=== PATIENT | female | born 1935 | race Caucasian/White ===

== ENCOUNTER 2020-08-31 11:48 | Emergency (ER) | payer MEDICARE, MEDICAID ==
[~2020-08-31] VITALS: Ht 162.6 cm; Wt 77.3 kg
[~2020-08-31 11:48] MED LIST: ALEVE 220MG220 MG PO; CARDIZEM 30MG T30 MG; CARDIZEM CD 18180 MG PO; CARTIA XT180 MG PO; LORTAB 5/500 501 TAB PO; SYNTHROID0.05 MG PO; SYNTHROID0.05 MG/TA PO; [UNRECOGNIZED DRUG - OTHER]
[2020-08-31 12:03] LABS: BASO % 0.3 % (0.0-2.0); EOS # 0.1 (0.0-0.7); EOS % 1.9 % (0-4.0); GRAN # 5.3 (1.4-6.5); GRAN % 76.3 % (42.2-75.2); HEMOGLOBIN 13.8 g/dl (12.5-16.0); LYMPH # 0.8 (1.2-3.4); LYMPH % 11.8 % (20.0-51.0); MEAN CELL VOLUME 93 fl (80.0-100.0); MEAN CORPUSCULAR HEMOGLOBIN 31 pg (27.0-31.0); MEAN CORPUSCULAR HGB CONC 33 g/dl (33.0-37.0); MEAN PLATELET VOLUME 10.4 fl (7.4-10.4); MONO # 0.7 (0.1-0.6); MONO % 9.4 % (1.7-9.3); PLATELET COUNT 261 K/mm3 (130-400); REDCELL DISTRIBUTION WIDTH-CV 13.9 % (11.5-14.5)
[2020-08-31 12:32] LABS: ALANINE AMINOTRANSFERASE 12 U/L (4-34); ALBUMIN 4.2 gm/dL (3.5-5.0); ALKALINE PHOSPHATASE 67 U/L (50-136); ANION GAP 9 mmol/L (7-16); AST,SGOT 19 U/L (15-37); BILIRUBIN,TOTAL 0.5 mg/dL (0.0-1.0); BLOOD UREA NITROGEN 11 mg/dL (7-17); CARBON DIOXIDE 28 mmol/L (22-30); CHLORIDE 103 mmol/L (98-107); GLUCOSE 110 mg/dL (74-106); POTASSIUM 3.9 mmol/L (3.4-5.0); SODIUM 140 mmol/L (137-145); TOTAL PROTEIN 7.1 gm/dL (6.4-8.2)
[2020-08-31 12:45] LABS: TROPONIN-I < 0.012 ng/mL (0.000-0.035)
[2020-08-31 12:50] LABS: COLLECTION METHOD CLEAN CATCH
[2020-08-31 12:58] LABS: PH 6 (5-8); SQUAMOUS EPITHELIAL 0-2 /hpf; URINE APPEARANCE Clear; URINE BACTERIA Rare /hpf; URINE BILIRUBIN Negative (NEGATIVE); URINE BLOOD Negative (NEGATIVE); URINE COLOR Straw; URINE GLUCOSE Negative (NEGATIVE); URINE KETONE Negative (NEGATIVE); URINE LEUKOCYTE ESTERASE Trace (NEGATIVE); URINE NITRATE Negative (NEGATIVE); URINE PROTEIN(semi-quant) Negative (NEGATIVE); URINE RBC 0-2 /hpf; URINE UROBILINOGEN Negative (NEGATIVE)
[2020-08-31 16:08] VITALS: BP 173/77; PULSE 78; TEMP 98.1
== END 2020-08-31 16:08 | disposition home or self-care (01) ==
LOC: COL.ER 11:48
PROVIDERS: Emergency Medicine
DX: R55 Syncope and collapse (principal); Z88.2 Allergy status to sulfonamides
CPT/HCPCS: J7030

== ENCOUNTER 2021-10-10 13:00 | Observation (INO) | payer MEDICARE, MEDICAID ==
[~2021-10-10] VITALS: Ht 162.6 cm; Wt 65.9 kg
[2021-10-10] MEDS ORDERED: TOPROL XL 25MG25 MG PO (14:13)
[2021-10-10 14:22] LABS: BASO % 0.2 % (0.0-2.0); GRAN # 10.7 K/mm3 (1.4-6.5); GRAN % 88.3 % (42.2-75.2); HEMATOCRIT 41.4 % (37.0-47.0); LYMPH # 0.4 K/mm3 (1.2-3.4); LYMPH % 2.9 % (20.0-51.0); MEAN CELL VOLUME 91 fl (80.0-100.0); MEAN CORPUSCULAR HEMOGLOBIN 31 pg (27-31); MEAN CORPUSCULAR HGB CONC 34 g/dl (33.0-37.0); MEAN PLATELET VOLUME 10.3 fl (7.4-10.4); MONO % 8.4 % (1.7-9.3); PLATELET COUNT 290 K/mm3 (130-400); RED BLOOD COUNT 4.53 M/mm3 (4.10-5.30); REDCELL DISTRIBUTION WIDTH-CV 13.7 % (11.5-14.5)
[2021-10-10 14:34] LABS: ALBUMIN 4.4 gm/dL (3.4-4.8); BILIRUBIN,TOTAL 0.9 mg/dL (0.2-1.2); CREATININE, serum 0.65 mg/dL (0.57-1.11); POTASSIUM 3.5 mmol/L (3.5-4.5)
[2021-10-10 14:41] LABS: TROPONIN-I 0.048 ng/mL (0.00-0.033)
[2021-10-10 19:17] LABS: PARTIAL THROMBOPLASTIN TIME 30.4 SECONDS (26.0-37.0)
[2021-10-10 20:34] VITALS: BP 99/57; PULSE 89; TEMP 98.5
--- NOTE | 2021-10-10 21:45 | NUR ---
PATIENT IS RESTING ON THE CHAIR.PATIENT IS ON A HEPAIN DRIP DRIPPING WELL.LAB CALLED FOR A CRITICAL LAB TROPS 0.77 TRENDING DOWN NOW.PATIENT DENIES PAIN.PATIENT IS ON TELEMETRY.PATIENT IS A STANDBY ASSIST.NO OTHER NEEDS AT THIS TIME.
[2021-10-10 23:54] VITALS: BP 102/47; PULSE 91; TEMP 97.5
[2021-10-11 04:36] VITALS: BP 118/48; PULSE 92; TEMP 97.6
--- NOTE | 2021-10-11 06:07 | NUR ---
PATIENT HAD A CALM NIGHT.PATIENT IS ON HEPARIN AT 8MLS/HR IN GOOD PROGRESS.SAFETY NEASURES IN PLACE.NO OTHER NEEDS AT THIS TIME.
[2021-10-11 07:14] LABS: BASO % 0.3 % (0.0-2.0); EOS # 0.1 K/mm3 (0.0-0.7); EOS % 0.7 % (0.0-4.0); GRAN # 5.4 K/mm3 (1.4-6.5); GRAN % 74.6 % (42.2-75.2); HEMATOCRIT 39.2 % (37.0-47.0); HEMOGLOBIN 13.1 g/dl (12.5-16.0); LYMPH # 0.9 K/mm3 (1.2-3.4); LYMPH % 13.1 % (20.0-51.0); MEAN CELL VOLUME 92 fl (80.0-100.0); MEAN CORPUSCULAR HEMOGLOBIN 31 pg (27-31); MEAN CORPUSCULAR HGB CONC 33 g/dl (33.0-37.0); MEAN PLATELET VOLUME 10.4 fl (7.4-10.4); MONO # 0.8 K/mm3 (0.1-0.6); PLATELET COUNT 250 K/mm3 (130-400); RED BLOOD COUNT 4.28 M/mm3 (4.10-5.30)
[2021-10-11 07:26] LABS: ALBUMIN 3.6 gm/dL (3.4-4.8); CALCIUM 8.8 mg/dL (8.4-10.2); CREATININE, serum 0.56 mg/dL (0.57-1.11); MAGNESIUM 1.9 mg/dL (1.6-2.6); PHOSPHOROUS 3.4 mg/dL (2.3-4.7); POTASSIUM 3.1 mmol/L (3.5-4.5)
[2021-10-11 07:57] VITALS: BP 117/57; PULSE 85; TEMP 98.4
--- NOTE | 2021-10-11 08:11 | NUR ---
Hepxa 0.23, increase by 150units/hr, TRA 9ml (900ml/hr), next check at 1400
--- NOTE | 2021-10-11 08:42 | NUR ---
Assessment completed, alert/oriented, vital signs stable, she denies any chest pain or discomfort, heart SR with PAC's/ rate 70-80's, troponin 6hr check is trending down/ I have spoke with Cardiology and discussed plan of care, heparin gtt per protocol, denies any resp.difficulty, lungs CTA, I have kept her NPO for possible Cards testing/procedure, discussed POC with patient and she verbalizes understanding, will continue to mmonitor, call light in reach
--- NOTE | 2021-10-11 10:56 | NUR ---
Patient is going to blood bank laboratory professional for a Loop recorder placement, consent is signed, hep gtt continues to infuse/ blood bank laboratory professional nurse aware
--- NOTE | 2021-10-11 12:08 | NUR ---
First visit from the quality systems specialist. No needs right now.
[2021-10-11 12:13] VITALS: BP 110/54; PULSE 83; TEMP 98.3
--- NOTE | 2021-10-11 14:26 | NUR ---
cabin worker met with patient to discuss discharge plan. Patient currently lives at home alone in an apartment. Patients son Arron ([phone]) present at bedside. Patient states that she is independent with her ADL's. States that she no longer drives and that Arron drives her to appointments and does her grocery shopping. Patient states that she utilizes a walker to assist with ambulation and that she has grab bars in her shower. Patient has no home oxygen needs. PCP is Dr. Robledo and she utilizes [facility] for perscriptions with no cost difficulty. Patient reports that she does have a DPOA-HC established and that her 3 children are listed as the agents. Patient is planning on returning home once medically ready. Discharge plan: Home
[2021-10-11 16:00] VITALS: BP 88/49; PULSE 95; TEMP 100.3
--- NOTE | 2021-10-11 20:20 | NUR ---
Patient is in the chair, alert and oriented x 4, VSS. Some anxiety about the new device in her body. Telemetry in place, NSR. Assessment completed, fall risk prec started (yellow gown, socks and band in wrist). No other needs at this time. Call light within reach.
[2021-10-11 20:47] VITALS: BP 116/49; PULSE 82; TEMP 98.6
[2021-10-11 23:57] VITALS: BP 127/48; PULSE 88; TEMP 97.7
[2021-10-12] VITALS (8 sets, daily range): BP systolic 112–126; BP diastolic 53–69; PULSE 65–96; TEMP 97.6–98.4
--- NOTE | 2021-10-12 05:37 | NUR ---
Patient has had a calm night. Has been NPO from midnight. Report will be given to day RN.
[2021-10-12 06:11] LABS: BASO % 0.5 % (0.0-2.0); EOS # 0.1 K/mm3 (0.0-0.7); EOS % 1.4 % (0.0-4.0); GRAN # 3.9 K/mm3 (1.4-6.5); GRAN % 68.6 % (42.2-75.2); HEMOGLOBIN 12.2 g/dl (12.5-16.0); LYMPH # 0.9 K/mm3 (1.2-3.4); LYMPH % 16.4 % (20.0-51.0); MEAN CELL VOLUME 92 fl (80.0-100.0); MEAN CORPUSCULAR HEMOGLOBIN 31 pg (27-31); MEAN CORPUSCULAR HGB CONC 33 g/dl (33.0-37.0); MEAN PLATELET VOLUME 10.4 fl (7.4-10.4); MONO # 0.7 K/mm3 (0.1-0.6); MONO % 12.9 % (1.7-9.3); PLATELET COUNT 228 K/mm3 (130-400); RED BLOOD COUNT 3.96 M/mm3 (4.10-5.30); REDCELL DISTRIBUTION WIDTH-CV 13.9 % (11.5-14.5)
[2021-10-12 06:16] LABS: HEMATOCRIT 36.6 % (37.0-47.0)
[2021-10-12 06:34] LABS: ALBUMIN 3.4 gm/dL (3.4-4.8); CALCIUM 8.5 mg/dL (8.4-10.2); CREATININE, serum 0.55 mg/dL (0.57-1.11); MAGNESIUM 1.9 mg/dL (1.6-2.6); PHOSPHOROUS 3.2 mg/dL (2.3-4.7); POTASSIUM 3.6 mmol/L (3.5-4.5)
--- NOTE | 2021-10-12 09:46 | NUR ---
Initial visit; Patient thanked Advocacy Director for looking in on her, providing encouragement and spiritual care, especially prayer and "comforting hugs."
--- NOTE | 2021-10-12 10:25 | NUR ---
PATIENT RETURN FROM [facility] PROCEDURE. COMPLAINING OF HEADACHE, RINGING IN BILATERAL EARS AND LEFT SIDED CHEST PAIN. RT CALLED FOR STAT EKG. VITALS 124/56, HR 75, O2 93% ON RA, RESP 16, TEMP 98.9.
[2021-10-12] MEDS ORDERED: CEPHALEXIN500 M1 PO (12:44)
--- NOTE | 2021-10-12 15:01 | NUR ---
Plastic Welder met with patient to review discharge plan as she may discharge today. SW discussed home health services and the benefits of HH with patient who advised she did not feel she needed these services at this time. SW attempted to contact patient's son, Arron and left a message. JAZZY also collaborated with Bernadine, Nurse-Home Appraiser at patient's primary care office to provide the above update and request PCP follow up on any need for home health following discharge. Discharge Plan: Home, declined HH
== END 2021-10-12 13:25 | disposition home or self-care (01) ==
LOC: COL.ER 13:00 → MEDICAL 15:31
PROVIDERS: Nurse Practitioner Family; ADMIT Internal Medicine
DX: R55 Syncope and collapse (principal); I48.91 Unspecified atrial fibrillation; I21.4 Non-ST elevation (NSTEMI) myocardial infarction; E87.6 Hypokalemia; I25.2 Old myocardial infarction; I08.0 Rheumatic disorders of both mitral and aortic valves; Z20.822 Contact with and (suspected) exposure to COVID-19; Z79.899 Other long term (current) drug therapy; Z80.9 Family history of malignant neoplasm, unspecified
CPT/HCPCS: 99223-AI; 99233-AI; 99239; A9500; C1764; G0378; J1644; J2785

== ENCOUNTER 2023-11-27 03:04 | Inpatient (IN) | payer MEDICARE, MEDICAID ==
[~2023-11-27] VITALS: Ht 165.1 cm; Wt 66.9 kg
[~2023-11-27 03:04] MED LIST changes: +CEPHALEXIN500 M1 PO; +TOPROL XL 25MG25 MG PO
[2023-11-28] VITALS (9 sets, daily range): BP systolic 137–155; BP diastolic 58–76; PULSE 74–99; TEMP 98.1–100
--- NOTE | 2023-11-28 03:25 | NUR ---
An Electronic Health Record (EHR) downtime event occurred during this patient s care. For legal medical record information generated during the downtime period, please reference the patient s legal record information generated during the downtime period, please reference the patient s legal medical record. Paper or scanned documentation has been incorporated into the legal medical record which is maintained in accordance with Health Information Management (HIM) and record retention policies
[2023-11-28] MEDS ORDERED: Ondansetron 4 MG/2 ML VIAL IV PRN (05:15)
[2023-11-28] MEDS ORDERED: Ketorolac 15 MG/ML VIAL IV PRN (05:15)
[2023-11-28] MEDS ORDERED: Acetaminophen 325 MG TAB PO PRN (05:15)
[2023-11-28] MEDS ORDERED: LR 1,000 ML IV SCH (05:15)
[2023-11-28] MEDS ORDERED: Morphine 4 MG/ML VIAL IV PRN (05:15)
[2023-11-28] MEDS ORDERED: Pantoprazole 40 MG in NS 10 ML IV SCH (09:00)
[2023-11-28] MEDS ORDERED: Heparin 5,000 UNITS/ML 1 ML VIAL SQ SCH (09:00)
--- NOTE | 2023-11-28 09:12 | NUR ---
Pt doing okay this morning, reports she if feeling much better than an episode around 1:00am. Pt states she does not need anything for pain at this time. Radiology called regarding KUB. EKG ordered and has been done. Educated pt on diet, did assist with brushing her teeth and gave some mouth swabs. Pt oriented, but is forgetful about ringing for help. Bed alarm on. O2 placed on at 0730 due to sats being 88% on room air. Pt has been up with PT and assisted to the bathroom, she did void without difficulty. No other needs at this time, call light within reach
--- NOTE | 2023-11-28 10:57 | NUR ---
Dr Jules notified of 100.0 temp.
--- NOTE | 2023-11-28 11:46 | NUR ---
Jig Worker and student, Adela met with patient to discuss discharge planning. Patient lives in [place] at the [facility] and stated she has lived in the same apartment for [address] Robledo for primary care, however is not happy with her care. When SW inquired about switching providers, patient stated she mainly sees other specialists. Patient gets her medications at [facility] and stated her son, Arron (ph#[phone]) picks them up for her. Patient stated he also comes over weekly to assist her with groceries. Patient stated she recently started getting meals on wheels and her son, Arron also brings her [employer]. Patient does not do any driving and relies on Arron for transportation. Patient has a rollator that she uses for ambulation and stated she likes to take her trash out daily and walk around the parking lot for exercise and to see what the weather is like. Patient reported she has a walk in shower and has multiple grab bars in her bathroom. Patient reported she is mostly independent with ADLS and does not currenlty have any Home Health, besides the help she gets from her son. Patient advised she has DPOA-HC completed and it designates her three children: Arron, Laurel and Jarred. Patient plans to return home at time of discharge. Discharge Plan: Home, pending further recommendations
--- NOTE | 2023-11-28 11:50 | NUR ---
Pt did okay with clear liquid diet, she did just have some coffee and jello, states she is not hungry. Pt continues to forget to ring to use the restroom. She also has to be directed on which way to move to get to the restroom. Bed alarm remains on, call light within reach
--- NOTE | 2023-11-28 15:20 | NUR ---
Pt was moving in bed and states that she got her IV tubing caught and her IV "accidently" fell out. New IV started in right forearm. PT has no complaints at this time and is resting in bed.
--- NOTE | 2023-11-28 21:44 | NUR ---
PT IS IN BED, ORIENTED TO SELF BUT UNSURE WHY SHE IS STILL HERE. REPORTS SHE LIVES IN INDEPENDENT LIVING AND REPORTS "I DO WELL ON MY OWN". ABD TENDER TO TOUCH, BOWEL SOUNDS MINIMAL WITH OBVIOUS DISTENTION NOTED. TORADOL 15MG IVP GIVEN. IV SITE TO RFA, NO REDNESS OR SWELLING NOTED. IS IMPULSIVE, BED ALARM ON. EMPTIED APPROX 200CC FROM EMESIS BAG, DENIES NAUSEA AT THIS TIME. NO BM SO FAR THIS SHIFT.
[2023-11-29] VITALS (18 sets, daily range): BP systolic 107–158; BP diastolic 58–79; PULSE 74–114; TEMP 98.3–99.6
--- NOTE | 2023-11-29 05:32 | NUR ---
PT HAS RESTED WELL. NO STOOLS THIS SHIFT. VOIDING WITHOUT PROBLEM. IVF CONTINUE. PT REMAINS ON CLEAR LIQUIDS.
--- NOTE | 2023-11-29 07:45 | NUR ---
pt curled up on the side of the bed experiencing nausea and vomiting. reports pain a 3/10 in her RLQ. zofran given per emar. vss. pt on 1L nasal cannula. fluids infusing into right forearm IV. abdomen is distended, bowel sounds hypoactive. pt denies needs at this time. call light in reach.
--- NOTE | 2023-11-29 12:45 | NUR ---
pt off floor for procedure.
[2023-11-29] MEDS ORDERED: Rocuronium 50 MG/5 ML Multi-Dose VIAL ONE (12:48)
[2023-11-29] MEDS ORDERED: Lidocaine PF 2% (20 MG/ML) 5 ML VIAL ONE (12:48)
[2023-11-29] MEDS ORDERED: Ondansetron 4 MG/2 ML VIAL ONE (12:48)
[2023-11-29] MEDS ORDERED: fentaNYL 50 MCG/ML 2 ML VIAL ONE (12:48)
[2023-11-29] MEDS ORDERED: LR 1,000 ML IV ONE (14:31)
[2023-11-29] MEDS ORDERED: Naloxone 0.4 MG/ML VIAL IV PRN (14:45)
[2023-11-29] MEDS ORDERED: Ondansetron 4 MG/2 ML VIAL IV PRN ×2 (14:45→15:00)
[2023-11-29] MEDS ORDERED: HYDROmorphone 0.5 MG/0.5 ML SYRINGE IV PRN (14:45)
[2023-11-29] MEDS ORDERED: Morphine 2 MG/1 ML VIAL [PACU/SDC ONLY] IV PRN (15:00)
[2023-11-29] MEDS ORDERED: HYDROmorphone 1 MG/1 ML SYRINGE [PACU/SDC ONLY] IV PRN (15:00)
[2023-11-29] MEDS ORDERED: fentaNYL 50 MCG/ML 1 ML SYRINGE/VIAL [PACU/SDC ONLY] IV PRN (15:00)
--- NOTE | 2023-11-29 19:00 | NUR ---
PT IN BED, TAKING ICE CHIPS SPARINGLY. HAS RT NARE NGT TO LIS, DRAINAGE BROWN IN CANNISTER. WEARING OXYMASK @4L, SAO2=93%. PT MORE ORIENTED TONIGHT, AWARE SHE HAD SURGERY AND REPORTS FEELING BETTER. HAS MIDLINE DRSG WITH SHADOWING. ONE ROBOTIC SITE WITH DRY GAUZE. HERNANDEZ TO BSD WITH YELLOW URINE. IVF TO RFA INFUSING WITHOUT PROBLEM.
--- NOTE | 2023-11-29 21:18 | NUR ---
MEDICATED WITH TORADOL 15MG IVP FOR MILD ABD PAIN. REINFORCED ABD DRSG WITH GAUZE FOR SHADOWING. HYPOACTIVE BS. COMPLIANT WITH NGT. MARY PATENT. BED ALARM ON. SCDS ON.
--- NOTE | 2023-11-29 23:30 | NUR ---
ASSISTED PT TO LT SIDE FOR COMFORT. DENIES PAIN AT THIS TIME.
[2023-11-30] VITALS (12 sets, daily range): BP systolic 107–133; BP diastolic 64–76; PULSE 77–102; TEMP 97.5–98.8
--- NOTE | 2023-11-30 01:46 | NUR ---
PT RESTLESS, HAVING ABD PAIN. HERNANDEZ DRAINING. NGT WITH LIGHT GREEN DRAINAGE IN TUBING. MORPHINE 4MG IVP GIVEN.
--- NOTE | 2023-11-30 05:27 | NUR ---
EMPTIED 400CC GREEN DRAINAGE FROM CANNISTER FOR THIS SHIFT. PT REMAINS ON OXYMASK AT 4L. NGT PATENT. IV SITE TO RFA WITHOUT REDNESS OR SWELLING. BED ALARM ON.
--- NOTE | 2023-11-30 07:58 | NUR ---
FOUND PT ON RA 64%. PACED O2 BACK ON AT 2 LPM OXYMK 90% RN NOTIFIED
--- NOTE | 2023-11-30 08:40 | NUR ---
pt a&ox4 resting in bed, dr aquino in assessing patient. pt reports tenderness with touch to the abdomen otherwise she denies pain. bowel sounds are hyperactive, denies passing gas. midline incision is cdi. vss. pt on 4L oxymask. scds to ble. tolerating ice chips with no nausea. NG tube to LIS w green gastric output. jeter to dd with clear yellow urine output. pts main concern is the discomfort from the catheter. fluids infusing into right forearm. fall precautions in place. call light in reach. no needs at this time.
[2023-11-30] MEDS ORDERED: Pantoprazole 40 MG in NS 10 ML IV SCH (09:00)
--- NOTE | 2023-11-30 14:52 | NUR ---
nursery worker met with pt to provide Medicare.gov list of SNF options after reviewing pt/ot reccomendations for HH vs SNF. Pt reports she had a major surgery done and is confused, and is not planning too far into the future. She is hopeful to return home upon discharge. SW provided Medicare.[employer] list of SNF in her room. She reports she will re-assess in a few days and would not like to discuss it any further. SW advised therapy team will continue to increase her strength and SW's will check on her periodically. Pt had no further questions. Discharge Plan: HH vs SNF
--- NOTE | 2023-11-30 20:30 | NUR ---
PT A&O X4 WITH SOME INTERMITTENT CONFUSION, LAYING IN BED. VSS ON 4L/NC. PT HAS NG TO LIS WITH YELLOW OUTPUT. PT DENYING N/V OR PASSING GAS. STATES ABD FEELS TENDER, DENIES THE NEED FOR PAIN MEDS. LR @ 75MLS/HR INFUSING TO RT FOREARM. PT AMBULATED TO RESTROOM WITH X1 ASSIST. BACK IN BED W/ FALL PRECAUTIONS IN PLACE & CALL LIGHT IN REACH.
[2023-12-01] VITALS (12 sets, daily range): BP systolic 122–148; BP diastolic 63–79; PULSE 75–98; TEMP 97.8–98.5
--- NOTE | 2023-12-01 05:42 | NUR ---
PT RESTING IN BED W/ UNLABORED RESP. PT HAS HAD 300ML OUT OF NGT THIS SHIFT. NO C/O PAIN OR N/V. BLE SCD ON. CALL LIGHT IN REACH & FALL PRECAUTIONS IN PLACE.
[2023-12-01 06:47] LABS: BASO % 0.1 % (0.0-2.0); EOS % 0.3 % (0.0-4.0); GRAN # 5.5 K/mm3 (1.4-6.5); GRAN % 77.4 % (42.2-75.2); HEMOGLOBIN 10.3 g/dl (12.5-16.0); LYMPH # 0.6 K/mm3 (1.2-3.4); LYMPH % 8.5 % (20.0-51.0); MEAN CELL VOLUME 93 fl (80.0-100.0); MEAN CORPUSCULAR HEMOGLOBIN 31 pg (27-31); MEAN CORPUSCULAR HGB CONC 33 g/dl (33.0-37.0); MEAN PLATELET VOLUME 10.5 fl (7.4-10.4); MONO % 13.4 % (1.7-9.3); PLATELET COUNT 261 K/mm3 (130-400); RED BLOOD COUNT 3.34 M/mm3 (4.10-5.30); REDCELL DISTRIBUTION WIDTH-CV 14.2 % (11.5-14.5)
--- NOTE | 2023-12-01 12:07 | NUR ---
PATIENT ALERT AND ORIENTED X4 BUT FORGETFUL. NG TO LIS, APPEARS TO BE DISPLACED, AT 26CM INTO RIGHT NARE. IV TO RIGHT FA WITH LR RUNNING AT 75ML/HOUR. PATIENT ON 3L NC. PATIENT DENIES PAIN. AM MEDS ADMINISTERED. NO FURTHER NEEDS. CALL LIGHT IN REACH. BED ALARM ON.
--- NOTE | 2023-12-01 12:11 | NUR ---
NOTIFIED DR. CH OF POSSIBLE NG TUBE DISPLACEMENT. XRAY ORDERED, PHONE ORDER TO ADVANCE BY 2CM. ATTEMPTED TO ADVANCE, PATIENT WOULD NOT TOLERATE ADVANCEMENT WITH A FEW SIPS OF WATER. NG PULLED OUT. DR MALDONADO NOTIFIED, ORDER TO KEEP NPO, LEAVE NG TUBE OUT AND GIVE A FEW SIPS AND CHIPS TODAY.
--- NOTE | 2023-12-01 13:37 | NUR ---
Purchasing Manager met with patient to discuss a referral to [facility] as she was not very open to the idea of SNF yesterday and really wants to return home. SW explained that [facility] is another option along with the SNF options provided yesterday. Patient still is adamant that she prefers to return home but does acknowledge that she is weaker than normal. Patient is agreeable to speak with [facility] about their program so SW gave referral to Lisbeth, [facility] Director. SW contacted patient's son, Arron to provide update and he was very interested in patient going to IPR if accepted. Discharge Plan: IPR Screen
[2023-12-02] VITALS (12 sets, daily range): BP systolic 132–159; BP diastolic 57–78; PULSE 74–89; TEMP 97.4–98.5
[2023-12-02 06:45] LABS: BASO % 0.2 % (0.0-2.0); EOS # 0.1 K/mm3 (0.0-0.7); GRAN # 4.5 K/mm3 (1.4-6.5); GRAN % 76.5 % (42.2-75.2); LYMPH # 0.6 K/mm3 (1.2-3.4); LYMPH % 9.9 % (20.0-51.0); MEAN CELL VOLUME 94 fl (80.0-100.0); MEAN CORPUSCULAR HGB CONC 33 g/dl (33.0-37.0); MEAN PLATELET VOLUME 10.2 fl (7.4-10.4); MONO # 0.7 K/mm3 (0.1-0.6); MONO % 11.9 % (1.7-9.3); PLATELET COUNT 257 K/mm3 (130-400); RED BLOOD COUNT 3.02 M/mm3 (4.10-5.30); REDCELL DISTRIBUTION WIDTH-CV 14.2 % (11.5-14.5)
[2023-12-02 06:47] LABS: HEMATOCRIT 28.4 % (37.0-47.0); HEMOGLOBIN 9.4 g/dl (12.5-16.0); MEAN CORPUSCULAR HEMOGLOBIN 31 pg (27-31)
[2023-12-02 07:02] LABS: CALCIUM 8.8 mg/dL (8.4-10.2); CREATININE, serum 0.58 mg/dL (0.57-1.11); POTASSIUM 3.3 mEq/L (3.5-4.5)
--- NOTE | 2023-12-02 09:10 | NUR ---
Patient resting in bed this am. She ambulated the halls with theray this am, reports being tired after. rounded this am and plan of care reviewed. Patient to slowly progress to clear liquids. Abdomen rounded, hypoactive bowels, but does reports passing flatus and stool. Confirmed with MARKET RESEARCH SPECIALIST and she reports stool in patient breif with incontinence. Patient denies needing medications for pain. IVf as ordered. Will monitor. high fall risk protocol followed.
--- NOTE | 2023-12-02 11:47 | NUR ---
Data: Patient accepted Pre Press Operator visit offered during Pre Press Operator rounds. Patient received her liquid diet meal at approximately the same time. Patient had been trying to locate a "temple channel" on her TV. She had located the [employer] channel, but it was stuck on one slide and seemed to be off air. Assessment: Disappointed about the [employer] channel; however, very positive reaction to having a cup of coffee and a visit with the Pre Press Operator. Patient was on/off confused during discussion; recognizes her confusion. Patient is reflecting about the possible reasons God must have for saving her from dying. Patient is grateful for her care from all of the hospital staff. Plan of Care: Pre Press Operator offered supportive listening; prayer; a rosary; assistance with straws for liquid diet; and attempted to find a working channel for Patient, without success. Chaplains will remain available as needed/requested while Patient is admitted to this hospital.
--- NOTE | 2023-12-02 12:03 | NUR ---
Patient resting in bed, so thankful and happy to have coffee today. Po intake encouraged slowly. DESK ASSISTANT assisted with shower for patient. Patient was happy. IVF as ordered. Will monitor.
[2023-12-02] MEDS ORDERED: *Potassium Replacement Protocol MC SCH (14:00)
[2023-12-02] MEDS ORDERED: Potassium Bicarbonate/Citrate 20 MEQ Effervescent TAB PO SCH (14:00)
--- NOTE | 2023-12-02 14:16 | NUR ---
Patient resting in bed. Her son at bedside. Patient in positive spirits. Continues to tolerated clears. Patient had another small Bm up to bathroom. Will monitor.
--- NOTE | 2023-12-02 18:09 | NUR ---
Patient resting in bed. Continues to tolerated clears without nausea. She reports her pain is calm. IVf as ordered. k+ replacement at ordered. Will monitor and report off to nightnurse
[2023-12-03] VITALS (13 sets, daily range): BP systolic 141–179; BP diastolic 67–81; PULSE 68–103; TEMP 97.9–98.5
[2023-12-03 06:19] LABS: MEAN CELL VOLUME 95 fl (80.0-100.0); MEAN CORPUSCULAR HGB CONC 33 g/dl (33.0-37.0); MEAN PLATELET VOLUME 10.5 fl (7.4-10.4); PLATELET COUNT 268 K/mm3 (130-400); RED BLOOD COUNT 3.04 M/mm3 (4.10-5.30); REDCELL DISTRIBUTION WIDTH-CV 14.1 % (11.5-14.5)
[2023-12-03 06:20] LABS: HEMATOCRIT 28.8 % (37.0-47.0); HEMOGLOBIN 9.5 g/dl (12.5-16.0); MEAN CORPUSCULAR HEMOGLOBIN 31 pg (27-31)
[2023-12-03 06:34] LABS: CALCIUM 8.4 mg/dL (8.4-10.2); CREATININE, serum 0.52 mg/dL (0.57-1.11); POTASSIUM 3.1 mEq/L (3.5-4.5)
[2023-12-03 07:20] LABS: BAND 3 % (0-10); EOSINOPHIL 2 % (0-4); HYPOCHROMIA 1+; LYMPHOCYTE 18 % (20.0-51.0); NEUTROPHILS 70 % (42.0-75.2); PLATELET ESTIMATE NORMAL (NORMAL)
--- NOTE | 2023-12-03 07:37 | NUR ---
BREAKFAST TRAY DELIVERED. THIS NURSE AT BEDSIDE TO REPOSITION PT TO EAT. PT STATES "I CANNOT EAT, I AM TOO TIRED, IT'S SO MUCH WORK TO BREATHE. I'M READY TO GO AND I JUST WANT TO BE COMFORTABLE". WILL SPEAK WITH HOSPITALIST TODAY ABOUT COMFORT CARE CONVERSATION.
[2023-12-03] MEDS ORDERED: Potassium Bicarbonate/Citrate 20 MEQ Effervescent TAB PO SCH (07:45)
[2023-12-03] MEDS ORDERED: Potassium Chloride 100 ML IV SCH (08:15)
--- NOTE | 2023-12-03 08:28 | NUR ---
Pt resting in bed with discomfort 2/10 in distended and frim abdomen. Heart sounds irregular, pt very fatigued, Dr Heck called and verbal orders for EKG. Pt continues to state "I am ready to go", Dr Heck notified. Pt remains on 2 NC, A/O x4, midline and lap site clean and dry to jose and open to air. Will continue to monitor.
[2023-12-03] MEDS ORDERED: hydrALAZINE 20 MG/ML 1 ML VIAL IV PRN (11:00)
--- NOTE | 2023-12-03 23:14 | NUR ---
PT RESTING IN BED, ALERT AND ORIENTED X4 ALTHOUGH SHE REMINDED ME SHE HAS DEMENTIA. SHIFT ASSESSMENT COMPLETE. SCDS IN PLACE, ON 2L NC. DENIES PAIN. ALL HS MEDS GIVEN PER ORDERS. DENIES FURTHER NEED. FALL PRECAUTIONS IN PLACE.
--- NOTE | 2023-12-03 23:58 | NUR ---
assumed care from BINH Graff. report rec'd, pt sleeping in bed at this time.
[2023-12-04] VITALS (11 sets, daily range): BP systolic 139–160; BP diastolic 55–93; PULSE 93–108; TEMP 97.6–98.4
[2023-12-04 06:10] LABS: HEMOGLOBIN 10.7 g/dl (12.5-16.0); MEAN CELL VOLUME 94 fl (80.0-100.0); MEAN CORPUSCULAR HEMOGLOBIN 31 pg (27-31); MEAN CORPUSCULAR HGB CONC 33 g/dl (33.0-37.0); MEAN PLATELET VOLUME 9.8 fl (7.4-10.4); PLATELET COUNT 308 K/mm3 (130-400); RED BLOOD COUNT 3.44 M/mm3 (4.10-5.30); REDCELL DISTRIBUTION WIDTH-CV 13.8 % (11.5-14.5)
[2023-12-04 06:12] LABS: HEMATOCRIT 32.3 % (37.0-47.0)
[2023-12-04 06:25] LABS: CALCIUM 8.5 mg/dL (8.4-10.2); CREATININE, serum 0.51 mg/dL (0.57-1.11); POTASSIUM 3.4 mEq/L (3.5-4.5)
[2023-12-04 06:49] LABS: EOSINOPHIL 2 % (0-4); LYMPHOCYTE 8 % (20.0-51.0); NEUTROPHILS 80 % (42.0-75.2); PLATELET ESTIMATE NORMAL (NORMAL)
[2023-12-04 06:50] LABS: BURR CELLS 1+; OVALOCYTES 1+
[2023-12-04] MEDS ORDERED: Potassium Chloride 100 ML IV SCH (07:00)
--- NOTE | 2023-12-04 07:44 | NUR ---
Patient resting in bed this am. She is in positive spirits, feeling better today. Enjoying her clear liquid tray. Denes pain, none at rest, slight discomfort with movement. Abdomen rounded, bowels audible. Incisions jose intact, open to air. Scds off, patient does not like wearing them, she reports. Ivf as ordered, k+ protocol. Will monitor closely. High fall risk protocol followed
--- NOTE | 2023-12-04 08:56 | NUR ---
SW attended clinical rounds with medical team. Per Dr. Heck, diet to be advanced today with goal of discharge tomorrow if diet is tolerated. SW met with patient to discuss discharge options. Discussed [facility] referral. Patient states she prefers to go home to her apartment that she says is handicapped accessible with grab bars and walk in shower, pull cords and [place] meals arranged. Patient is open to discuss IPR. Director Yarely notified of patient's referral and will meet with patient today. Discussed discharging home with services if patient decides against IPR. Medicare.gov list of HH providers provided for patient review. Discharge plan: IPR vs home with HH
--- NOTE | 2023-12-04 10:35 | NUR ---
Patient resting in bed. She ambulated halls with therapy. Remains in positive spirits. Will progress to full liquids, tolerated clears for breakfast without problems. Will monitor
--- NOTE | 2023-12-04 11:25 | NUR ---
Patient up to the bathroom, had a BM. Soft formed, brown. Up to the sink independent with hygine. Steady on her feet. Sitting in chair, lunch discussed with tub puller. She remains in positive spirits. Will monitor
[2023-12-04] MEDS ORDERED: Potassium Bicarbonate/Citrate 20 MEQ Effervescent TAB PO SCH (11:45)
--- NOTE | 2023-12-04 13:13 | NUR ---
Patient continues to sit up in chair, discharge planning being discussed with social work. She worked again with therapy. WIll monitor, high fall risk followed.
--- NOTE | 2023-12-04 13:36 | NUR ---
Discussed Medicare IM form with patient and son. Both are agreeable to patient's discharge for tomorrow. Son signed form, original on chart, copy provided to patient.
--- NOTE | 2023-12-04 19:35 | NUR ---
Patient sat at edge of bed for dinner and did well with full liquids. Denies nausea. She was up to the bathroom and voided, no Bm. Over all denies pain and continues to be in great spirits. Bedside report to Tea to resume cares
--- NOTE | 2023-12-04 19:36 | NUR ---
report received from vanessa cavazos. pt resting in bed watching tv. pt denies pain. call light in reach. fall precautions in place. all needs met at this time.
--- NOTE | 2023-12-04 22:54 | NUR ---
shift assessment complete, see documentation. pt tolerated hs meds well. iv abx continue to left forearm iv without issue. pt resting in bed watching tv. pt denies pain. midline and lap sites have jose intact without drainage. fall precautions in place. call light in reach. all needs met at this time.
[2023-12-05] VITALS (12 sets, daily range): BP systolic 138–159; BP diastolic 70–91; PULSE 88–99; TEMP 97.5–98.1
--- NOTE | 2023-12-05 09:00 | NUR ---
pt resting in bed, just finished with breakfast and tolerated well. vss. pt denies pain. abdominal midline incision is cdi. reports her only complaint is her IV in her arm. denies needs at this time. call light in reach.
--- NOTE | 2023-12-05 11:11 | NUR ---
Patient is accepted to [facility]. Patient diet advancing today and will transition to [facility] pending tolerance of diet. Plan for transition tomorrow per attending. Discharge plan: IPR
[2023-12-05] MEDS ORDERED: Potassium Bicarbonate/Citrate 20 MEQ Effervescent TAB PO SCH (12:45)
--- NOTE | 2023-12-05 20:00 | NUR ---
PT AMBULATING WITH ONE ASSIST AND WALKER TO BATHROOM, DOES WELL. BACK TO BED. HAS MIDLINE INCISION W/BABAR GIVER. WEARING OXYGEN AT 2L/NC. WILL D/C TO I[facility] TOMORROW. INT TO RAC INTACT.
[2023-12-06 00:30] VITALS: BP_SYST 144
[2023-12-06 03:43] VITALS: BP 131/69; PULSE 87; TEMP 97.6
[2023-12-06 04:38] VITALS: BP_SYST 131
--- NOTE | 2023-12-06 06:00 | NUR ---
SCHEDULED AM MED GIVEN. PT REMAINS ON 2L/NC OXYGEN. INT TO LAC INTACT. WILL BE GOING TO I[facility] TODAY.
[2023-12-06 07:30] VITALS: BP 134/72; PULSE 102; TEMP 97.1
[2023-12-06] MEDS ORDERED: Potassium Bicarbonate/Citrate 20 MEQ Effervescent TAB PO ONE (07:30)
--- NOTE | 2023-12-06 08:15 | NUR ---
pt a&ox4 resting in bed eating breakfast, tolerating diet without nausea. vss. pt denies pain. bowel sounds are active. pt refused suppository due to having bowel movement last night. abdominal incisions are cdi. pt denies needs. call light in reach.
[2023-12-06] MEDS ORDERED: ZOFRAN ODT4 MG PO (09:14)
[2023-12-06] MEDS ORDERED: TYLENOL 325MG325 MG PO (09:14)
[2023-12-06 10:54] VITALS: BP_SYST 134
--- NOTE | 2023-12-06 10:59 | NUR ---
pt escorted to [facility] by wheelchair.
== END 2023-12-06 11:00 | DRG 331 ==
LOC: COL.ER 03:04 → SURG 06:20
PROVIDERS: Surgery; ADMIT Hospitalist
PROC: 0DT80ZZ Resection of Small Intestine, Open Approach (ICD-10-PCS; principal; 2023-11-27)
DX: K56.609 Unspecified intestinal obstruction, unspecified as to partial versus complete obstruction (principal); M19.90 Unspecified osteoarthritis, unspecified site; E03.9 Hypothyroidism, unspecified; I27.20 Pulmonary hypertension, unspecified; I10 Essential (primary) hypertension; E11.9 Type 2 diabetes mellitus without complications; Z79.4 Long term (current) use of insulin; E87.6 Hypokalemia; E78.5 Hyperlipidemia, unspecified; H93.19 Tinnitus, unspecified ear; F03.90 Unspecified dementia, unspecified severity, without behavioral disturbance, psychotic disturbance, mood disturbance, and anxiety
CPT/HCPCS: A4314; A9284; C9113; J0360; J1170; J1644; J1885; J2270; J2405; J2543; J2704; J3010; J3480; J7120

== ENCOUNTER 2023-12-06 05:10 | Inpatient (IN) | payer MEDICARE, MEDICAID ==
[~2023-12-06] VITALS: Ht 165.1 cm; Wt 66.4 kg
[2023-12-06] MEDS ORDERED: ZOFRAN ODT4 MG PO (09:14)
[2023-12-06] MEDS ORDERED: TYLENOL 325MG325 MG PO (09:14)
[2023-12-06] MEDS ORDERED: Naloxone 0.4 MG/ML VIAL IV PRN ×2 (11:15→12:30)
[2023-12-06] MEDS ORDERED: Sennosides/Docusate 8.6-50 MG TAB PO PRN ×2 (11:15→12:30)
[2023-12-06] MEDS ORDERED: Polyethylene Glycol 3350 17 GM PDS PO PRN ×2 (11:15→12:30)
[2023-12-06] MEDS ORDERED: Docusate Sodium 100 MG CAP PO PRN ×2 (11:15→12:30)
[2023-12-06] MEDS ORDERED: Acetaminophen 325 MG TAB PO PRN ×2 (11:15→12:30)
--- NOTE | 2023-12-06 13:25 | NUR ---
SW met with patient to complete initial assessment for discharge planning. Patient admitted from surgical unit and voices reluctance at being in hospital for extended period of time. Patient states she lives in [place] at the [facility] where she has lived for over [address] Robledo as her PCP and uses [facility]. Patient denies having HH services at home and relies on her son Arron for assistance and driving to appointments. She has names her three children Arron, Laurel and Jarred as DPOA. Patient recently started receiving Meals on Wheels. She states her only DME is a rollator walker and multiple grab bars in her walk in shower. Patient reports that she is active at home and walks the stairs almost daily for exercise and takes her trash out herself to get exercise and get fresh air. Patient plans to return home at discharge. Discharge plan: home with probable HH
[2023-12-06 17:52] VITALS: BP 155/77; PULSE 104; TEMP 98.3
[2023-12-06 18:03] VITALS: BP 155/77; PULSE 104; TEMP 98.3
[2023-12-06 19:00] VITALS: BP_SYST 155
--- NOTE | 2023-12-06 19:00 | NUR ---
Received change of shift report from day shift nurse. Patient resting in bed, exit alarm, call light within patient's reach. Denies any needs or concerns at this time.
[2023-12-06] MEDS ORDERED: Heparin 5,000 UNITS/ML 1 ML VIAL SQ SCH (21:00)
[2023-12-07 05:58] VITALS: BP 158/83; PULSE 99; TEMP 97.4
[2023-12-07 06:50] VITALS: BP_SYST 158
--- NOTE | 2023-12-07 07:32 | NUR ---
Change of shift report given to day shift nurseCindy.
--- NOTE | 2023-12-07 07:34 | NUR ---
Pt laying in bed.Requested to ambulate to bathroom. No issues with walker. No further needs as this time. Call light in reach and bed alarm on.
--- NOTE | 2023-12-07 07:44 | NUR ---
Pt is sitting up at bedside eating breakfast. Pt is A&Ox4. VSS. S1S2. Clear lungs, RLL diminished. ABD flat, soft, non-tender with audible bowel sounds. Palpable pulses with 4/5 strength in all extremities. BLE edema, non-pitting. Pt denies pain, n/v, headahce, dizziness. No further needs at this time. Call light in reach and bed alarm on.
--- NOTE | 2023-12-07 11:32 | NUR ---
Placed ABD binder on Pt. Per Pt was having some pain during therapy over incision sites. Pt hopeful ABD binder will help. No further needs. Call light in reach and bed alarm on.
[2023-12-07 17:51] VITALS: BP 150/77; PULSE 99; TEMP 98.4
[2023-12-07 19:40] VITALS: BP_SYST 150
--- NOTE | 2023-12-07 19:40 | NUR ---
RECEIVED CHANGE OF SHIFT REPORT FROM DAY SHIFT NURSE. PATIENT RESTING IN BED, EXIT ALARM ON, CALL LIGHT WITHIN PATIENT'S REACH.
--- NOTE | 2023-12-07 20:00 | NUR ---
Patient reports passing flatus and tolerating oral nutritional intake. Denies chest pain/shortness of breathe/nausea at this time. Patient resting in bed with bed exit alarm on, call ight within patient's reach. Denies any discomfort at this time.
--- NOTE | 2023-12-08 02:50 | NUR ---
Patient resting in bed with eyes closed, observed breathing nonlabored and even. Bed exit alarm on, call light within patient's reach.
[2023-12-08 05:34] VITALS: BP 150/72; PULSE 92; TEMP 97.7
[2023-12-08 06:52] VITALS: BP_SYST 150
--- NOTE | 2023-12-08 06:52 | NUR ---
Change of shift report given to day shift nurseCindy.
--- NOTE | 2023-12-08 07:26 | NUR ---
Pt sleeping in bed. Call light in reach.
--- NOTE | 2023-12-08 07:41 | NUR ---
Pt sitting up in chair. Finished breakfast. A&Ox4. VSS. BPs are sitting in 150s and Pt has history of HTN, no HTN meds on AUG. S1S2. Clear lungs in RA. ABD flat, soft, non-tender with audible bowel sounds. Palpable pulses in all extremities with 4/5 strength. 3"x2" lump on R forearm. Pt reports it has been there for years. Midline incision closed with stapes, [place]. Lap site in LLQ closed with jose, [place]. Pt denies pain, n/v, headache, dizziness. Placed ABD binder on Pt for PT session. No further needs at this time. Call light in reach and chair alarm on. Pt reports she is not on any HTN meds at home and Dr Sandoval follows her.
--- NOTE | 2023-12-08 10:42 | NUR ---
Initial visit; Patient is delightful and so thankful for her surgeon who she knows saved her life, she believes in miracles and is doing better than she thought possible. We said prayer for all who are caring for her, her children included and in thanksgiving for God who has more for her to do on this earth because she said she surely could have . She thanked Director Of Direct Marketing for listening and prayer and wants the Clinical Nursing Coordinator to know the food is delicious.
--- NOTE | 2023-12-08 13:44 | NUR ---
hydroponics worker met to check-in with pt and assess for any needs. She had no needs for SW, but asked with assistance calling her son, Arron. SW assisted in dialing his number so she could talk with him. Discharge Plan: [facility]
--- NOTE | 2023-12-08 14:06 | NUR ---
demolition worker was informed to schedule a family meeting for pt on Monday. JAZZY and Director Lisbeth met with pt to discuss discharge plan for Monday, tenatively. JAZZY offered two times for Monday and pt chose 1pm for her son to attend in person. Arron later arrived and confirmed 1pm for the family meeting. Discharge Plan: family meeting Monday and dc Monday tenatively
[2023-12-08] MEDS ORDERED: amLODIPine 5 MG TAB PO SCH (14:47)
[2023-12-08 17:11] VITALS: BP 124/70; PULSE 91; TEMP 98.5
[2023-12-08 19:33] VITALS: BP_SYST 124
--- NOTE | 2023-12-08 21:42 | NUR ---
patient lying in bed, alert and oriented x4. denies chest pain and shortness of breath. lap site in LUQ and midline site closed with jose, open to air, CDI. BLE nonpitting edema noted. pt has no further needs, questions, or concerns at this time. fall precautions in place, call light within reach. will continue to monitor.
[2023-12-09 05:30] VITALS: BP 164/80; PULSE 94; TEMP 98.5
[2023-12-09 06:35] VITALS: BP_SYST 164
[2023-12-09 06:52] LABS: BASO % 0.3 % (0.0-2.0); EOS # 0.1 K/mm3 (0.0-0.7); EOS % 1.9 % (0.0-4.0); GRAN # 4.7 K/mm3 (1.4-6.5); GRAN % 73.5 % (42.2-75.2); HEMOGLOBIN 10.6 g/dl (12.5-16.0); LYMPH # 0.8 K/mm3 (1.2-3.4); LYMPH % 12.9 % (20.0-51.0); MEAN CELL VOLUME 94 fl (80.0-100.0); MEAN CORPUSCULAR HEMOGLOBIN 31 pg (27-31); MEAN CORPUSCULAR HGB CONC 33 g/dl (33.0-37.0); MEAN PLATELET VOLUME 9.6 fl (7.4-10.4); MONO # 0.7 K/mm3 (0.1-0.6); MONO % 10.5 % (1.7-9.3); PLATELET COUNT 378 K/mm3 (130-400); RED BLOOD COUNT 3.41 M/mm3 (4.10-5.30); REDCELL DISTRIBUTION WIDTH-CV 14.4 % (11.5-14.5)
[2023-12-09 07:05] LABS: HEMATOCRIT 32.1 % (37.0-47.0)
--- NOTE | 2023-12-09 07:26 | NUR ---
Pt laying in bed. No needs at this time. Call light in reach. Refilled ice water. Bed alarm on.
[2023-12-09 07:39] LABS: CALCIUM 9.4 mg/dL (8.4-10.2); CREATININE, serum 0.54 mg/dL (0.57-1.11); POTASSIUM 3.5 mEq/L (3.5-4.5)
--- NOTE | 2023-12-09 08:30 | NUR ---
Pt sitting up in bed. Finished breakfast. A&Ox3. VSS. S1S2. Clear lungs on RA. ABD is flat, soft, non-tender with audible bowel sounds. Pt reports mild pain when pressure over LUQ incision site. Pt reports itching around incision sites. Pt denies constant pain, n/v, headache, dizziness. Pt ambulated with walker to bathroom, no issues. +1 pitting edema in BLE, per Pt that is normal. No further needs. Call light in reach and bed alarm on.
--- NOTE | 2023-12-09 08:32 | NUR ---
Changed Pt linens.
--- NOTE | 2023-12-09 10:08 | NUR ---
Pt reports chest discomfort. Upon assessment Pt holding left side of chest with both hands. Regular rhythm, S1S2. Pt discribes it as a pressure rating 5/10. Pt states this is the first time she has experienced chest discomfort since being in the hospital. Pt states this may have happened before when her cardiac problems were more severe. Emily PCT took VS - Oxygen 91%, placed Pt on 1.5 L O2 via NC. Pt states pain is not going away and says "something does not feel right". Pt denies shortness of breath.
[2023-12-09] MEDS ORDERED: Mag/Al Hydrox/Simeth Susp 30 ML CUP PO ONE (10:15)
[2023-12-09 10:26] VITALS: BP 134/68; PULSE 94; TEMP 97.6
--- NOTE | 2023-12-09 10:35 | NUR ---
Pt A&Ox4. Pt states pressure still present, not pain but new discomfort. Oxygen up to 95% on 1 L O2 via NC. Administered Maalox. EKG completed. Hospitalist - Dr Peñaloza spoke with Pt. Pt states children's aide explained heart hiccups years ago but hasnot felt them in years. Titrated Pt off oxygen. SpO2 at 95%. Call light in reach.
--- NOTE | 2023-12-09 11:50 | NUR ---
Pt reports pressure is relieving. Not gone, but less pressure. Pt has no concerns at this time. Call light in reach and bed alarm on.
--- NOTE | 2023-12-09 16:20 | NUR ---
Pt reported she is feeling a lot better. "No pain, no tightness." Pt stated she had the best sleep this afternoon since being at the hospital. No needs at this time. Call light in reach and bed alarm on.
[2023-12-09 18:09] VITALS: BP 151/71; PULSE 84; TEMP 98.3
[2023-12-09 21:46] VITALS: BP_SYST 151
--- NOTE | 2023-12-09 21:51 | NUR ---
pt lying in bed, alert and oriented x4. denies chest pain or pressure and shortness of breath. ambulating with steady gait and walker to bathroom. BLE with nonpitting edema, elevated on pillows. pt has no further needs, questions, or concerns at this time. fall precautions in place, call light within reach. will continue to monitor.
[2023-12-10 05:42] VITALS: BP 137/78; PULSE 93; TEMP 98.1
[2023-12-10 06:35] VITALS: BP_SYST 137
--- NOTE | 2023-12-10 07:10 | NUR ---
Pt sleeping in bed. Call light in reach. Bed alarm on.
--- NOTE | 2023-12-10 08:45 | NUR ---
Pt laying in bed. Fresh clothes and linens. A&Ox3. VSS. S1S2. Clear lungs on RA. ABD is round, soft, non-tender with audible bowel sounds. Palpable pulses in all extremities, 4/5 strength. Edema in BLE, per Pt better than yesterday but still present, non-pitting. Midline insicision is WA with jose. ULQ lap site WA with staple. Pt denies pain, n/v, dizziness, headache. Pt reports soft, formed BM this AM. Call light in reach and bed alarm on.
[2023-12-10 17:02] VITALS: BP 149/75; PULSE 91; TEMP 98.1
[2023-12-10 19:00] VITALS: BP_SYST 149
--- NOTE | 2023-12-11 00:36 | NUR ---
UPON SHIFT ASSESSMENT, PATIENT C/O OF ABDOMINAL PRESSURE AND FULLNESS. ABDOMEN WAS DISTENDED AND FIRM. BOWEL SOUNDS PRESENT AND SURGICAL INCISIONS WERE CDI AND WELL APPROXIMATED. PATIENT WAS SITTING UPRIGHT IN BED AND AXO X4. ASSISSTED PATIENT TO BATHROOM-GAIT WAS STEADY WITH WALKER-AND PATIENT EXPELLED LARGE AMOUNT OF GAS. STATED SHE FELT RELIEF. PATIENT ALSO C/O OF ONCOMING MIGRAINE. PRN TYLENOL GIVEN. VS ARE STABLE. BED ALARM ON, CALL LIGHT WITHIN REACH
--- NOTE | 2023-12-11 03:31 | NUR ---
+1 EDEMA NOTED ON BILATERAL LOWER EXTREMITIES. ELEVATED ON PILLOWS.
[2023-12-11 05:18] VITALS: BP 136/68; PULSE 73; TEMP 97.8
--- NOTE | 2023-12-11 06:40 | NUR ---
Pt sleeping in bed. Call light in reach.
[2023-12-11 07:05] VITALS: BP_SYST 136
--- NOTE | 2023-12-11 07:16 | NUR ---
Pt sitting up on edge of bed. A&Ox4. VSS. S1S2. Clear lungs on RA. ABD round, soft, non-tender with audible bowel sounds. Palpable pulses with 4/5 strength in all extremities. Midline and ULQ incisions are WA and jose in place. Pt denies pain, n/v, headache, dizziness. No further needs. Call light in reach and bed alarm on.
--- NOTE | 2023-12-11 15:27 | NUR ---
SW attended family meeting with patient, son, unit staff and Nutrition Associate. Discussed progress with each therapy discipline and medical progress during rehab admission. Patient is scheduled for discharge on Tuesday 12/12. Patient provided with Medicare.gov list of HH providers, which son chose [facility]. Referral faxed. Discussed therapy recommendation for shower chair. Informed son that insurance does not cover this and recommended ordering through [employer], or purchasing from [employer] or [employer]. Patient voiced excitement to return home. Discharge plan: Home with HH
--- NOTE | 2023-12-11 15:28 | NUR ---
Pt resting in bed. Pt reports headache from earlier is getting better and Tylenol really helped. Dimmed lights. No further needs. Call light in reach and bed alarm on.
--- NOTE | 2023-12-11 15:52 | NUR ---
Admission QIM scores were reviewed by the team. Code of 3 chosen for toilet transfers was determined by team discussion to be the most usual performance for this patient during the discharge assessment period. Code of 3 chosen for shower/bathe self was determined by team discussion to be the most usual performance before interventions for this patient during the assessment period. Code of 4 chosen for upper body dressing was determined by team discussion to be the most usual performance before interventions for this patient during the assessment period. Code of 3 chosen for lower body dressing was determined by team discussion to be the most usual performance before interventions for this patient during the assessment period. Code of 2 chosen for putting on/taking off footwear was determined by team discussion to be the most usual performance before interventions for this patient during the assessment period.--Lisbeth Frias, PD
[2023-12-11 16:44] VITALS: BP 154/66; PULSE 84; TEMP 98.2
[2023-12-11 19:21] VITALS: BP_SYST 154
--- NOTE | 2023-12-11 19:21 | NUR ---
RECEIVED CHANGE OF SHIFT REPORT FROM DAY SHIFT NURSE. PATIENT RESTING IN BED, EATING AFTERNOON SNACK. DENIES ANY COMPLAINTS OR NEEDS. EXIT ALARM ON, CALL LIGHT WITHIN PATIENT REACH.
--- NOTE | 2023-12-11 20:00 | NUR ---
PATIENT REPORTS HAS HISTORY OF MEMORY RECALL PROBLEMS. DENIES CHEST PAIN/SHORTNESS OF AIR/NAUSEA AT THIS TIME. REPORTED HAD BM EARLIER TODAY. EXIT ALARM ON WHILE RESTING IN BED. CALL LIGHT WITHIN PATIENT'S REACH. UP TO BATHROOM WITH WHEELED WALKER AND GAIT BELT WITH SLOW BUT STEADY GAIT. ABLE TO PULL UP DRESS WHILE USING TOILETING PER SELF.
[2023-12-12 05:16] VITALS: BP 129/65; PULSE 88; TEMP 97.8
--- NOTE | 2023-12-12 07:09 | NUR ---
CHANGE OF SHIFT REPORT GIVEN TO DAY SHIFT NURSEMIAN.
[2023-12-12 07:31] VITALS: BP_SYST 129
--- NOTE | 2023-12-12 07:47 | NUR ---
PATIENT AWAKE AND ALERT, SITTING UP IN BED, EATING BREAKFAST. CALL LIGHT WITHIN REACH. FALL PRECAUTIONS IN PLACE. PATIENT DENIES ANY FURTHER NEEDS AT THIS TIME. CALL LIGHT WTIHIN REACH.
[2023-12-12] MEDS ORDERED: Ketorolac 15 MG/ML VIAL IV ONE (09:45)
[2023-12-12] MEDS ORDERED: Ibuprofen 400 MG TAB PO ONE (10:30)
--- NOTE | 2023-12-12 12:49 | NUR ---
SW received message from Nicolette at [facility]– [place] accepting patient for admission. Discharge plan: Home with
[2023-12-12 17:08] VITALS: BP 130/72; PULSE 87; TEMP 99
--- NOTE | 2023-12-12 18:00 | NUR ---
ANGELITA AWAKE AND ALERT , SITTING UP IN BED. FILIPPON ATE 100% OF HER DINNER. PATIENT VOICES NO BM YET,HOWEVER IS PASSING GAS. PATIENT STATED SHE WOULD LIKE A SENNA TAB WITH HER NIGHT MED, THIS RN WILL PASS ALONG TO PUBLIC ADDRESS TECHNICIAN NURSE.
--- NOTE | 2023-12-12 18:54 | NUR ---
RECEIVED CHANGE OF SHIFT REPORT FROM DAY SHIFT NURSE.
[2023-12-12 19:00] VITALS: BP_SYST 130
[2023-12-13 05:09] VITALS: BP 128/71; PULSE 79; TEMP 97.9
--- NOTE | 2023-12-13 06:58 | NUR ---
CHANGE OF SHIFT REPORT GIVEN TO DAY SHIFT NURSECHRIS.
[2023-12-13 07:27] VITALS: BP_SYST 128
[2023-12-13] MEDS ORDERED: MIRALAX238G PO (08:37)
[2023-12-13] MEDS ORDERED: SENOKOT S 50 MG1 TAB PO (08:37)
[2023-12-13] MEDS ORDERED: NORVASC2.5 MG PO (08:38)
--- NOTE | 2023-12-13 10:03 | NUR ---
Pt resting in chair with no pain at this time. Midline and lap sites with jose dry and intact. Pt a/o x4, steady gait with walker, and states several bm's this AM. Upon discussing follow up appointments with PCP, pt states she no longer wants to be seen by Dr Amie Robledo and would like to make her own follow up appointment with a new provider after discharge. No needs at this time, planning for discharge at 11. Will continue to monitor.
--- NOTE | 2023-12-13 11:24 | NUR ---
Pt and son provided with discharge instructions. Discussed follow up appintment with Dr Blunt, scheduling with a new primary care provider, new medications, and signs of infection. No questions at this time. Pt and belongings escorted out of building via wheelchair.
--- NOTE | 2023-12-13 12:33 | NUR ---
SW attended team meeting. Discussed patient's progress with therapy and discussed discharge planned for today. Patient scheduled to discharge to home with Brenda HUNTLEY. SW met with patient to review Medicare IM form. Patient agreeable to discharge and signed form. Original on chart and copy to patient. Per RN, patient asking for list of PCP acceping new patients. List provided to patient who states she will make her own follow up appointment. Discharge plan: Home with Brenda HUNTLEY
--- NOTE | 2023-12-14 14:12 | NUR ---
Discharge QIM scores were reviewed by the team. Code of 6 chosen for toileting hygiene was determined by team discussion to be the most usual performance for this patient during the discharge assessment period. Code of 6 chosen for toilet transfers was determined by team discussion to be the most usual performance for this patient during the discharge assessment period. Code of 6 chosen for lower body dressing was determined by team discussion to be the most usual performance for this patient during the discharge assessment period. Code of 6 chosen for putting on/taking off footwear was determined by team discussion to be the most usual performance for this patient during the discharge assessment period. Code of 6 chosen for walking 10 feet was determined by team discussion to be the most usual performance for this patient during the discharge assessment period.--Lisbeth Frias, PD
== END 2023-12-13 11:25 | disposition home health service (06) | DRG 948 ==
PROVIDERS: ADMIT Physical Medicine & Rehabilitation Sports Medicine
DX: R53.81 Other malaise (principal); R26.89 Other abnormalities of gait and mobility; K76.9 Liver disease, unspecified; D64.9 Anemia, unspecified; Z66 Do not resuscitate; B02.9 Zoster without complications; E87.6 Hypokalemia; I10 Essential (primary) hypertension; R07.89 Other chest pain; H93.19 Tinnitus, unspecified ear; R00.0 Tachycardia, unspecified; E11.9 Type 2 diabetes mellitus without complications; E03.9 Hypothyroidism, unspecified; I27.29 Other secondary pulmonary hypertension; G43.909 Migraine, unspecified, not intractable, without status migrainosus; E78.5 Hyperlipidemia, unspecified; I08.0 Rheumatic disorders of both mitral and aortic valves; M19.90 Unspecified osteoarthritis, unspecified site; F03.90 Unspecified dementia, unspecified severity, without behavioral disturbance, psychotic disturbance, mood disturbance, and anxiety; Z74.09 Other reduced mobility; Z95.818 Presence of other cardiac implants and grafts; Z87.440 Personal history of urinary (tract) infections
CPT/HCPCS: A9284; J1644